=== PATIENT | male | born 1980 | race Asian ===

== ENCOUNTER 2019-04-12 10:47 | Emergency (ER) | payer MEDICAID, OTHER ==
[~2019-04-12] VITALS: Ht 172.7 cm; Wt 70.5 kg
[2019-04-12] MEDS ORDERED: IBUP-1506 PO (10:59)
[2019-04-12] MEDS ORDERED: RABIES VAC,PF CHICK-EMB CELL 2.5 UNITS/ML SYRINGE IM ONE (13:00)
[2019-04-12] MEDS ORDERED: CefTRIAXone SODIUM 1 GM/VIAL IM ONE (13:00)
[2019-04-12] MEDS ORDERED: LIDOCAINE/PF 1% 2 ML VIAL IM ONE (13:00)
[2019-04-12 14:03] VITALS: BP 128/76
== END 2019-04-12 14:52 | disposition home or self-care (01) ==
LOC: EMS 10:48 → EDBD 10:48 → EMS 14:52
DX: S91.332A Puncture wound without foreign body, left foot, initial encounter (principal); L03.116 Cellulitis of left lower limb; F17.210 Nicotine dependence, cigarettes, uncomplicated; F12.90 Cannabis use, unspecified, uncomplicated; Z23 Encounter for immunization; W55.01XA Bitten by cat, initial encounter; Y93.89 Activity, other specified; Y92.89 Other specified places as the place of occurrence of the external cause; Y99.8 Other external cause status
CPT/HCPCS: 73630; 90471; 90675; 96372; 99283; J0696; J3490

== ENCOUNTER 2019-04-19 11:31 | Emergency (ER) | payer MEDICAID ==
[~2019-04-19] VITALS: Ht 175.3 cm; Wt 70.5 kg
[~2019-04-19 11:31] MED LIST: IBUP-1506 PO
[2019-04-19] MEDS ORDERED: AMOX1TAB16 PO (12:04)
[2019-04-19] MEDS ORDERED: METR500 PO (12:04)
[2019-04-19] MEDS ORDERED: RABIES VAC,PF CHICK-EMB CELL 2.5 UNITS/ML SYRINGE IM ONE (12:30)
[2019-04-19 12:43] VITALS: BP 144/88
== END 2019-04-19 12:44 | disposition home or self-care (01) ==
LOC: EMS 11:32
DX: S91.352A Open bite, left foot, initial encounter (principal); Z23 Encounter for immunization; F12.90 Cannabis use, unspecified, uncomplicated; Z79.899 Other long term (current) drug therapy; W64.XXXA Exposure to other animate mechanical forces, initial encounter; Y93.89 Activity, other specified; Y92.89 Other specified places as the place of occurrence of the external cause; Y99.8 Other external cause status
CPT/HCPCS: 90471; 90675